=== PATIENT | female | born 1955 | race Caucasian/White ===

== ENCOUNTER → 2018-02-26 | Outpatient (CLI) | payer BC ==
[2018-02-26 14:30] LABS: ALBUMIN 4.5 g/dL (3.5-5.0); CALCIUM 9.7 mg/dL (8.4-10.2); TOTAL BILIRUBIN 0.4 mg/dL (0.2-1.3); TOTAL PROTEIN 7.1 g/dL (6.3-8.2)
[2018-02-26 20:21] LABS: EOS # 0.2 (0.04-0.40); EOS % 2.8 % (1.0-5.0); HEMATOCRIT 44.3 % (37.0-47.0); HEMOGLOBIN 14.8 g/dL (12.5-16.0); LYMPH# 1.7 (1.50-4.00); MEAN CELL VOLUME 94 fl (78-100); MEAN CORPUSCULAR HEMOGLOBIN 31 pg (27-31); MEAN CORPUSCULAR HGB CONC 33 g/dL (33-37); MEAN PLATELET VOLUME 11.4 fl (7.4-10.4); MONO # 0.5 (0.20-0.80); NEU # 3.7 (1.40-6.50); PLATELET COUNT 202 K/mm3 (130-400); RED BLOOD COUNT 4.72 M/mm3 (4.10-5.30); RED CELL DISTRIBUTION WIDTH 12.9 % (11.5-14.5)
== END ==
LOC: LAB 13:50
PROVIDERS: Physician Assistant
DX: Z12.39 Encounter for other screening for malignant neoplasm of breast (principal); Z00.00 Encounter for general adult medical examination without abnormal findings; J30.2 Other seasonal allergic rhinitis; A92.31 West Nile virus infection with encephalitis; F31.9 Bipolar disorder, unspecified; F90.9 Attention-deficit hyperactivity disorder, unspecified type

== ENCOUNTER → 2020-05-15 | Outpatient (CLI) | payer MEDICARE ==
[2020-05-15 15:38] LABS: BASO # 0.1 (0.02-0.10); EOS # 0.2 (0.04-0.40); EOS % 3.2 % (1.0-5.0); HEMATOCRIT 44.1 % (37.0-47.0); HEMOGLOBIN 14.2 g/dL (12.5-16.0); LYMPH# 2.1 (1.50-4.00); MEAN CELL VOLUME 94 fl (78-100); MEAN CORPUSCULAR HEMOGLOBIN 30 pg (27-31); MEAN CORPUSCULAR HGB CONC 32 g/dL (33-37); MEAN PLATELET VOLUME 10.5 fl (7.4-10.4); MONO # 0.6 (0.20-0.80); NEU # 4.6 (1.40-6.50); PLATELET COUNT 190 K/mm3 (130-400); RED BLOOD COUNT 4.69 M/mm3 (4.10-5.30); RED CELL DISTRIBUTION WIDTH 13.6 % (11.5-14.5); WHITE BLOOD COUNT 7.6 K/mm3 (4.8-10.8)
[2020-05-15 15:58] LABS: POTASSIUM 3.9 mmol/L (3.5-5.1)
[2020-05-15 15:59] LABS: CALCIUM 9.4 mg/dL (8.3-10.5)
[2020-05-15 16:00] LABS: TOTAL PROTEIN 6.7 g/dL (6.2-8.1)
[2020-05-15 16:02] LABS: TOTAL BILIRUBIN 0.2 mg/dL (0.2-1.2)
== END ==
LOC: RAD 15:14
PROVIDERS: Physician Assistant
DX: E78.5 Hyperlipidemia, unspecified (principal); Z01.818 Encounter for other preprocedural examination

== ENCOUNTER → 2020-05-17 | Outpatient (CLI) | payer MEDICARE ==
[2020-05-17 13:32] LABS: PARTIAL THROMBOPLASTIN TIME 26.7 SECONDS (21.0-32.0); PROTHROMBIN TIME 9.7 SECONDS (9.0-12.0)
== END ==
LOC: LAB 12:33
PROVIDERS: Physician Assistant
DX: Z01.818 Encounter for other preprocedural examination (principal)

== ENCOUNTER → 2020-05-31 | Outpatient (CLI) | payer MEDICARE | LOC: LAB 09:22 | DX: Z01.812 Encounter for preprocedural laboratory examination (principal); Z20.822 Contact with and (suspected) exposure to COVID-19 ==

== ENCOUNTER → 2020-06-06 | Day surgery (SDC) | payer MEDICARE | END | disposition home or self-care (01) | LOC: MSO 08:09 | DX: H26.8 Other specified cataract (principal); E66.9 Obesity, unspecified; Z88.2 Allergy status to sulfonamides | CPT/HCPCS: 00142; J0171; J2250; J3010; V2632 ==

== ENCOUNTER → 2020-07-09 | Day surgery (SDC) | payer MEDICARE | LOC: MSO 08:26 | DX: Z12.11 Encounter for screening for malignant neoplasm of colon (principal); Z83.71 Family history of colonic polyps | CPT/HCPCS: G0121; 00812; J2704; J7120 ==

== ENCOUNTER → 2020-07-19 | Outpatient (CLI) | payer MEDICARE | LOC: MAMMO 08:28 | DX: Z12.31 Encounter for screening mammogram for malignant neoplasm of breast (principal); Z01.818 Encounter for other preprocedural examination ==

== ENCOUNTER 2020-09-10 05:41 | Emergency (ER) | payer MEDICARE ==
[2020-09-10 07:07] LABS: BASO # 0.04 (0.02-0.10); EOS # 0.38 (0.04-0.40); EOS % 7.9 % (1.0-5.0); HEMATOCRIT 41.6 % (37.0-47.0); HEMOGLOBIN 13.9 g/dL (12.5-16.0); LYMPH# 1.51 (1.50-4.00); MEAN CELL VOLUME 92 fl (78-100); MEAN CORPUSCULAR HEMOGLOBIN 31 pg (27-31); MEAN CORPUSCULAR HGB CONC 33 g/dL (33-37); MEAN PLATELET VOLUME 10.2 fl (7.4-10.4); MONO # 0.45 (0.20-0.80); NEU # 2.41 (1.40-6.50); PLATELET COUNT 169 K/mm3 (130-400); RED BLOOD COUNT 4.54 M/mm3 (4.10-5.30); RED CELL DISTRIBUTION WIDTH 12.9 % (11.5-14.5); WHITE BLOOD COUNT 4.8 K/mm3 (4.8-10.8)
[2020-09-10 07:14] LABS: ALBUMIN 3.9 g/dL (3.4-4.8); POTASSIUM 3.8 mmol/L (3.5-5.1)
[2020-09-10 07:16] LABS: CALCIUM 8.9 mg/dL (8.3-10.5)
[2020-09-10 07:17] LABS: TOTAL PROTEIN 6.1 g/dL (6.2-8.1)
[2020-09-10 07:19] LABS: TOTAL BILIRUBIN 0.2 mg/dL (0.2-1.2)
[2020-09-10 08:18] VITALS: BP 97/63
== END 2020-09-10 08:18 | disposition home or self-care (01) ==
LOC: ED 05:41
PROVIDERS: Family Medicine
DX: F41.0 Panic disorder [episodic paroxysmal anxiety] (principal)

== ENCOUNTER → 2023-01-21 | Outpatient (CLI) | payer MEDICARE ==
[2023-01-21 10:45] LABS: BASO # 0.04 K/mm3 (0.02-0.10); EOS # 0.22 K/mm3 (0.04-0.40); EOS % 3.3 % (1.0-5.0); HEMATOCRIT 44.6 % (37.0-47.0); HEMOGLOBIN 14.4 g/dL (12.5-16.0); LYMPH# 1.51 K/mm3 (1.50-4.00); MEAN CELL VOLUME 95 fl (78-100); MEAN CORPUSCULAR HEMOGLOBIN 31 pg (27-31); MEAN CORPUSCULAR HGB CONC 32 g/dL (33-37); MEAN PLATELET VOLUME 10.3 fl (7.4-10.4); MONO # 0.39 K/mm3 (0.20-0.80); NEU # 4.41 K/mm3 (1.40-6.50); PLATELET COUNT 206 K/mm3 (130-400); RED BLOOD COUNT 4.68 M/mm3 (4.10-5.30); RED CELL DISTRIBUTION WIDTH 13.1 % (11.5-14.5); WHITE BLOOD COUNT 6.6 K/mm3 (4.8-10.8)
[2023-01-21 10:51] LABS: POTASSIUM 3.9 mmol/L (3.5-5.1)
[2023-01-21 10:52] LABS: ALBUMIN 4.2 g/dL (3.4-4.8)
[2023-01-21 10:53] LABS: CALCIUM 9.4 mg/dL (8.3-10.5)
[2023-01-21 10:54] LABS: TOTAL PROTEIN 6.8 g/dL (6.2-8.1)
[2023-01-21 10:56] LABS: TOTAL BILIRUBIN 0.4 mg/dL (0.2-1.2)
== END ==
LOC: LAB 10:04
PROVIDERS: Physician Assistant
DX: Z13.1 Encounter for screening for diabetes mellitus (principal); Z13.29 Encounter for screening for other suspected endocrine disorder; Z13.220 Encounter for screening for lipoid disorders; L60.0 Ingrowing nail; L98.9 Disorder of the skin and subcutaneous tissue, unspecified; K90.9 Intestinal malabsorption, unspecified; R09.81 Nasal congestion; R41.3 Other amnesia; B35.1 Tinea unguium

== ENCOUNTER → 2023-05-14 | Outpatient (CLI) | payer MEDICARE | LOC: RAD 15:06 | DX: J01.00 Acute maxillary sinusitis, unspecified (principal); I67.82 Cerebral ischemia; R41.3 Other amnesia | CPT/HCPCS: A9575 ==

== ENCOUNTER → 2023-05-18 | Outpatient (CLI) | payer MEDICARE | LOC: RAD 13:52 | DX: R00.2 Palpitations (principal) ==